=== PATIENT | female | born 1930 | race Caucasian/White ===

== ENCOUNTER 2016-12-15 17:15 | Outpatient (CLI) | payer MEDICARE, OTHER | END 2016-12-15 17:16 | disposition critical access hospital (66) | LOC: EMS 17:15 | PROVIDERS: ATTEND Surgery | DX: R55 Syncope and collapse (principal) | CPT/HCPCS: A0425; A0429 ==

== ENCOUNTER 2016-12-15 17:38 | Observation (INO) | payer MEDICARE, OTHER ==
--- NOTE | 2016-12-15 20:18 | ED Physician Documentation ---
PD HPI SYNCOPE - Stated complaint Stated Complaint: NEAR SYNCOPE - Chief complaint Chief Complaint: General - History obtained from History obtained from: Patient, EMS - History of Present Illness Witnessed: Witnessed Timing - onset: Today Duration: Seconds Preceding symptoms: Light headed, Generalized weakness. No: Headache, Vision changes, Chest pain, Palpitations, Diaphoresis, Dyspnea, Abdominal pain, Nausea / vomiting Associated symptoms: No: Seizure, Incontinant of urine, Incontinant of stool, Headache, Vision changes, Chest pain, Palpitations, Diaphoresis, Dyspnea, Nausea / vomiting Contributing factors: No: Recent med change Injury occurred: Fell. No: Head injury, Neck injury Pain level max: 0 Pain level now: 0 Similar symptoms before: Has not had sx before Recently seen: Not recently seen Review of Systems Ten Systems: 10 systems reviewed and negative Constitutional: denies: Fever, Chills Nose: denies: Rhinorrhea / runny nose, Congestion Throat: denies: Sore throat Cardiac: reports: Palpitations (states "didn't notice"). denies: Chest pain / pressure Respiratory: denies: Cough GI: denies: Abdominal Pain, Nausea, Vomiting Skin: denies: Rash Musculoskeletal: denies: Neck pain, Back pain Neurologic: denies: Headache PD PAST MEDICAL HISTORY - Past Medical History Past Medical History: Yes Other Past Medical History: uterine cancer - Past Surgical History Past Surgical History: Yes /[employer]: Hysterectomy - Present Medications Home Medications: Ambulatory Orders Medication Instructions Recorded Confirmed No Known Home Medications [No 12/15/16 12/15/16 Known Home Medications] - Allergies Allergies/Adverse Reactions: Allergies Allergy/AdvReac Type Severity Reaction Status Date / Time Sulfa (Sulfonamide Allergy Unknown Verified 12/15/16 17:47 Antibiotics) - Social History Does the pt smoke?: No Smoking Status: Never smoker PD ED PE NORMAL - Vitals Vital signs reviewed: Yes - General General: Alert and oriented X 3, No acute distress, Well developed/nourished - HEENT HEENT: Atraumatic, PERRL, Moist mucous membranes - Neck Neck: Supple, no meningeal sign, No bony TTP - Cardiac Cardiac: RRR, No murmur, Strong equal pulses - Respiratory Respiratory: No respiratory distress, Clear bilaterally - Abdomen Abdomen: Soft, Non tender, Non distended - Back Back: No spinal TTP - Derm Derm: Warm and dry, No rash - Extremities Extremities: No edema, No calf tenderness / cord - Neuro Neuro: Alert and oriented X 3, mine technician 2-12 intact, No motor deficit, No sensory deficit, Normal speech - Psych Psych: Normal mood, Normal affect Results - Vitals Vitals: Vital Signs - 24 hr 12/15/16 12/15/16 17:42 21:10 Temperature 36.4 C L 36.6 C Heart Rate 82 88 Respiratory 18 18 Rate Blood Pressure 142/82 H 198/88 H O2 Saturation 99 98 Oxygen O2 Source Room air - EKG (time done) 2030 Rate: Rate (enter#) (76) Rhythm: NSR, Other (PVC) [place]: Normal Intervals: Normal TN, Prolonged QT (521) QRS: Normal - Labs Labs: Laboratory Tests 12/15/16 12/15/16 12/15/16 19:25 20:20 20:20 WBC 10.8 RBC 3.43 L Hgb 10.4 L Hct 30.6 L MCV 89.2 MCH 30.5 MCHC 34.2 RDW 14.2 Plt Count 288 MPV 6.7 L Neut # 8.7 H Lymph # 1.4 L [place] # 0.6 Eos # 0.0 Baso # 0.1 Absolute Nucleated RBC 0.00 Nucleated RBCs 0.0 ESR VBG pH Ionized Calcium Sodium 136 Potassium 3.5 Chloride 103 Carbon Dioxide 25 Anion Gap 8.0 BUN 27 H Creatinine 1.2 H Estimated GFR (MDRD) 43 L Glucose 116 H Calcium 6.2 L* Phosphorus 4.2 Magnesium 2.0 Total Bilirubin 0.7 AST 32 ALT 18 Alkaline Phosphatase 84 Troponin I Total Protein 6.1 L Albumin 1.9 L Globulin 4.2 Albumin/Globulin Ratio 0.5 L Lipase 44 PTH Intact Urine Color YELLOW Urine Clarity HAZY Urine pH 6.0 Ur Specific [place] 1.025 Urine Protein >=300 H Urine Glucose (UA) NEGATIVE Urine Ketones NEGATIVE Urine Occult Blood MODERATE H Urine Nitrite NEGATIVE Urine Bilirubin NEGATIVE Urine Urobilinogen 0.2 (NORMAL) Ur Leukocyte Esterase NEGATIVE Urine RBC 6-10 H Urine WBC 0-3 Ur Squamous Epith Cells FEW Squamous Urine Bacteria Few Urine Casts 0-2 Hyaline Casts Ur Microscopic Review INDICATED Urine Culture Comments NOT INDICATED 12/15/16 12/15/16 12/15/16 20:20 20:20 20:20 WBC RBC Hgb Hct MCV MCH MCHC RDW Plt Count MPV Neut # Lymph # [place] # Eos # Baso # Absolute Nucleated RBC Nucleated RBCs ESR > 140 H VBG pH Ionized Calcium Sodium Potassium Chloride Carbon Dioxide Anion Gap BUN Creatinine Estimated GFR (MDRD) Glucose Calcium Phosphorus Magnesium Total Bilirubin AST ALT Alkaline Phosphatase Troponin I 0.04 Total Protein Albumin Globulin Albumin/Globulin Ratio Lipase PTH Intact 49 Urine Color Urine Clarity Urine pH Ur Specific [place] Urine Protein Urine Glucose (UA) Urine Ketones Urine Occult Blood Urine Nitrite Urine Bilirubin Urine Urobilinogen Ur Leukocyte Esterase Urine RBC Urine WBC Ur Squamous Epith Cells Urine Bacteria Urine Casts Ur Microscopic Review Urine Culture Comments 12/15/16 21:30 WBC RBC Hgb Hct MCV MCH MCHC RDW Plt Count MPV Neut # Lymph # [place] # Eos # Baso # Absolute Nucleated RBC Nucleated RBCs ESR VBG pH 7.342 Ionized Calcium 0.82 L Sodium Potassium Chloride Carbon Dioxide Anion Gap BUN Creatinine Estimated GFR (MDRD) Glucose Calcium Phosphorus Magnesium Total Bilirubin AST ALT Alkaline Phosphatase Troponin I Total Protein Albumin Globulin Albumin/Globulin Ratio Lipase PTH Intact Urine Color Urine Clarity Urine pH Ur Specific [place] Urine Protein Urine Glucose (UA) Urine Ketones Urine Occult Blood Urine Nitrite Urine Bilirubin Urine Urobilinogen Ur Leukocyte Esterase Urine RBC Urine WBC Ur Squamous Epith Cells Urine Bacteria Urine Casts Ur Microscopic Review Urine Culture Comments PD MEDICAL DECISION MAKING - ED course Complexity details: reviewed results, re-evaluated patient, considered differential, d/w patient, d/w freight traffic consultant ED course: Patient is an 86-year-old female who presents to the emergency department with syncope today. She is found to have a prolonged QT interval on her EKG and to be severely hypocalcemic. IV calcium was given in the emergency department and parathyroid hormone level sent. We will admit the patient for correction of her calcium, telemetry monitoring and further evaluation. Discussed the case with the hospitalist who accepts. This document was made in part using voice recognition software. While efforts are made to proofread this document, sound alike and grammatical errors may occur. Departure - Departure Disposition: ED Place in Observation Clinical Impression: Hypocalcemia, QT prolongation Syncope Qualifiers: Syncope type: unspecified Qualified Code(s): R55 - Syncope and collapse Hypertension Qualifiers: Hypertension type: unspecified Qualified Code(s): I10 - Essential (primary) hypertension Condition: Stable Discharge Date/Time: 12/15/16 22:48
[2016-12-15 20:31] LABS: BASOPHILS # (AUTO) 0.1 10^3/uL (0.0-0.1); BASOPHILS % (AUTO) 0.8 %; EOSINOPHILS % (AUTO) 0.4 %; HCT - HEMATOCRIT 30.6 % (37.0-47.0); HGB - HEMOGLOBIN 10.4 g/dL (12.0-16.0); LYMPHOCYTES # (AUTO) 1.4 10^3/uL (1.5-3.5); LYMPHOCYTES % (AUTO) 13.2 %; MEAN CORPUSCULAR HEMOGLOBIN 30.5 pg (27.0-31.0); MEAN CORPUSCULAR HGB CONC 34.2 g/dL (32.0-36.0); MEAN CORPUSCULAR VOLUME 89.2 fL (81.0-99.0); MEAN PLATELET VOLUME 6.7 fL (7.9-10.8); MONOCYTES # (AUTO) 0.6 10^3/uL (0.0-1.0); MONOCYTES % (AUTO) 5.4 %; NEUTROPHILS # (AUTO) 8.7 10^3/uL (1.5-6.6); NEUTROPHILS % (AUTO) 80.2 %; RED BLOOD COUNT 3.43 10^6/uL (4.20-5.40); RED CELL DISTRIBUTION WIDTH 14.2 % (12.0-15.0); UNCORRECTED WHITE BLOOD COUNT 10.8 x10^3/uL; WHITE BLOOD COUNT 10.8 x10^3/uL (4.8-10.8)
[2016-12-15 20:34] LABS: BILIRUBIN,URINE NEGATIVE (NEGATIVE)
[2016-12-15 20:38] LABS: UA w/ MICROSCOPIC CHARGE YES
[2016-12-15 20:54] LABS: ALBUMIN/GLOBULIN RATIO 0.5 (1.0-2.2); BILIRUBIN,TOTAL 0.7 mg/dL (0.2-1.0); CREATININE 1.2 mg/dL (0.4-1.0); PHOSPHORUS 4.2 mg/dL (2.5-4.6); POTASSIUM 3.5 mmol/L (3.5-5.0); TOTAL PROTEIN 6.1 g/dL (6.7-8.2)
[2016-12-15 20:59] LABS: WBC,URINE 0-3 /HPF (0-5)
[2016-12-15 21:00] LABS: UR CULTURE IF IND NOT INDICATED
[2016-12-15 21:05] LABS: CALCIUM 6.2 mg/dL (8.5-10.3)
[2016-12-15] MEDS ORDERED: CALCIUM GLUCONATE 1000 MG/10 ML VIAL IVP STA (21:09)
[2016-12-15] MEDS ORDERED: SODIUM CHLORIDE 0.9% 1,000 ML IV ONE (21:12)
[2016-12-15] MEDS ORDERED: CALCIUM GLUCONATE 1000 MG/10 ML VIAL ONE (21:18)
[2016-12-15 21:47] LABS: CALCIUM, IONIZED 0.82 mmol/L (1.15-1.33); VBG PH 7.342 (7.31-7.41)
[2016-12-15] MEDS ORDERED: ONDANSETRON 4 MG/2 ML VIAL IVP PRN (22:22)
[2016-12-15] MEDS ORDERED: SODIUM CHLORIDE FLUSH 0.9% 10 ML SYRINGE IVP PRN (22:22)
[2016-12-15] MEDS ORDERED: ACETAMINOPHEN 325 MG TABLET PO PRN (22:22)
[2016-12-15] MEDS ORDERED: ZOLPIDEM 5 MG TABLET PO PRN (22:22)
[2016-12-15 23:26] LABS: THYROID STIMULATING HORMONE 4.59 uIU/mL (0.34-5.60)
[2016-12-16] MEDS: CALCIUM CARBONATE CHEW 500 MG TABLET PO SCH ×2 (00:12→07:39)
[2016-12-16] MEDS ORDERED: SODIUM CHLORIDE FLUSH 0.9% 10 ML SYRINGE IVP SCH (06:00)
[2016-12-16 06:40] LABS: BUN - BLOOD UREA NITROGEN 28 mg/dL (6-20); CARBON DIOXIDE - CO2 25 mmol/L (21-32); CHLORIDE 105 mmol/L (101-111); CREATININE 1.4 mg/dL (0.4-1.0); GFR - MDRD 36 (>89); GLUCOSE 97 mg/dL (70-100); PHOSPHORUS 4.7 mg/dL (2.5-4.6); POTASSIUM 3.9 mmol/L (3.5-5.0); SODIUM 138 mmol/L (135-145)
[2016-12-16] MEDS ORDERED: CALCIUM GLUCONATE 1,000 MG in SODIUM CHLORIDE 0.9% 50 ML IV ONE ×5 (06:43→08:00)
[2016-12-16 06:45] LABS: CALCIUM 6.4 mg/dL (8.5-10.3)
[2016-12-16 06:48] LABS: CALCIUM, IONIZED 0.9 mmol/L (1.15-1.33); VBG PH 7.395 (7.31-7.41)
--- NOTE | 2016-12-16 07:11 | HISTORY & PHYSICAL EXAMINATION ---
DATE OF ADMISSION: 12/15/2016 CHIEF COMPLAINT: Syncope. HISTORY OF PRESENT ILLNESS: The patient is an 86-year-old white female with remote history of uterine cancer, who has no active medical issues, at least not to her knowledge, and she takes no outpatient medications. She was brought into the [facility] ER by ambulance after she suffered a presyncopal or syncopal episode at a local store. The patient reported that around 3:00 p.m., she was at a store pushing a cart and felt exhausted. She thinks that as she is getting older, she feels weaker and often gets tired. As she got exhausted, she steered the cart into a display station and subsequently got some help from bystanders. By the time bystanders were next to her, she was lowered to the floor, and she believes she passed out, lost some time, and collapsed. She tells me that she is not sure whether she just fainted and did not really pass out or passed out, but the way she tells me the story, it seems that she did lose time, and it most likely was a true syncopal episode. Other than this episode on her admission day, she had 1 similar episode 6 months ago. The patient denied chest pain and shortness of breath. She denied fever, nausea, vomiting, or any additional acute change. She, however, admitted to weight loss of at least 25 pounds during the past 6 months, which was unintentional. She told me that she eats mostly salads and fish. She does not eat meat. Does not drink milk, but eats cheese and yogurt. She also eats eggs. She does have enough resources and has access to food. She likes to cook and usually eats high quality meals. She did not try to lose weight, and she does not feel like her appetite was much worse than usual. Regarding additional problems in the past few months, she noticed that her ankles started to swell up, the right ankle more than the left. Regarding her cancer history, she had uterine cancer about 12 years ago. At that time, she underwent hysterectomy, received chemotherapy and radiation therapy, and followed up with an oncologist often. However, 5 years after her cancer, she stopped following up with the oncologist and only has primary care followup. She does go to have Pap smears yearly. PAST MEDICAL HISTORY: Uterine cancer, status post chemotherapy and radiation therapy, status post hysterectomy. MEDICATIONS: The patient takes no medications. SOCIAL HISTORY: The patient still drives. Functional with instrumental activities of daily living. She is a nonsmoker. She uses a cane to ambulate. FAMILY HISTORY: Mother of a myocardial infarction at age 70. Father of lung cancer at age 67. REVIEW OF SYSTEMS: Please see pertinent positives listed in the history of present illness. The patient does not report additional complaints on a 12- point review. CODE STATUS: DO NOT RESUSCITATE/DO NOT INTUBATE. IN FACT, THE PATIENT TELLS ME THAT IF HER CANCER WOULD RETURN, SHE WOULD NOT WANT TREATMENT. SHE WOULD WANT TO BE TREATED ACCORDING TO COMFORT. PHYSICAL EXAMINATION: VITAL SIGNS: Temperature 36.6, heart rate in the 80s, blood pressure 140/80, respiratory rate 18, oxygen saturation 99% on room air. Notably, on the medical floor, the patient's blood pressure increased to 170-180 systolic. GENERAL: The patient is a well-developed, elderly female who was not in distress. SKIN: Pallor. No jaundice. LYMPH: The patient had diffuse lymphedema, most noticeable on the lower extremities, with 2+ edema up to the mid delatorre bilaterally. NEUROLOGIC: Alert, oriented, nonfocal. PSYCH: Cooperative. MUSCULOSKELETAL: Atraumatic. CVS: S1, S2. Irregular. I could not hear an obvious murmur. RESPIRATORY: Lungs clear to auscultation, without wheezes or crackles. ABDOMEN: Soft, benign, nontender. Bowel tones present. LABORATORY DATA: ER workup reviewed per electronic medical record. The pertinent positives included an EKG showing bigeminy, prolonged QT, and nonspecific changes. Laboratories showing a calcium of 6.2 and an albumin of 1.9. The corrected calcium would be 7.9. Ionized calcium was low as well. Creatinine was 1.2 and BUN 27. Urinalysis showed red blood cells and protein. Hemoglobin was 10.4. Troponin was negative. ACTIVE ISSUES/DIAGNOSES: 1. Syncopal episode, likely multifactorial. The patient appears with significant weight loss and a poor nutritional status. She also has advanced age. a. I wonder whether the uterine cancer or any other malignancy is complicating the case. b. Patient with abnormal EKG. Could have suffered a cardiac syncope. c. Orthostatic change and mild dehydration are possible. BUN was 27. The electrolyte abnormality, including hypocalcemia, and weakness could also have contributed. d. Intracranial abnormality and stroke unlikely, as the patient had a nonfocal neurologic exam. 2. Hypocalcemia. Corrected calcium is 7.9. The patient likely has vitamin D deficiency that could be related to her diet. Plus, she could have abnormal parathyroid function and will require further workup. Regarding the phosphate and magnesium, those were checked in the ER and were unremarkable/normal. The patient will need to have calcium replacement. 3. Abnormal EKG and bigeminy, prolonged QT. This is in the setting of electrolyte abnormality. 4. Lower extremity edema. In the setting of severe hypoalbuminemia, hypoalbuminemia could obviously cause peripheral edema, plus the patient might also have heart failure. 5. Episodes of hypertension after admission. The patient might have undiagnosed hypertension. 6. Severe malnutrition with 25-pound weight loss and an albumin of 1.9. I suspect recurrent malignancy. PLAN AND ORDERS: 1. The patient is getting admitted under observation. We will complete a syncope workup, which will include telemetry monitoring, echocardiogram, checking orthostatic vital signs, and carotid ultrasound. I considered a CT scan of the brain, but the patient appeared neurologically nonfocal. She did not suffer a head injury. 2. Calcium replacement. 3. IV hydration was given in the ER. 4. Regarding malnutrition, we will request a medical laboratory specialist consult. 5. I discussed with the patient that her uterine cancer needs to be followed up. Due to her weight loss, she would be recommended to undergo further workup and an oncology checkup. The patient told me that she does not wish further workup, as that would be of no consequence. She would not accept any therapy or intervention for her cancer. Therefore, for now, I ordered an ESR to get more information, but I did not order any extensive workup such as an abdominal ultrasound or tumor markers. Further workup could be deferred to the outpatient setting, and that is what I discussed with the patient. She understands that she would need to follow up for this problem. 6. Regarding the etiology of her hypocalcemia, we will check a 1, 25-vitamin D level. In the meantime, we will give IV calcium replacement and oral calcium supplements as well, and I started vitamin D. 7. Regarding her hypertension, we will consider starting an antihypertensive. 8. Regarding the lower extremity swelling, as it was asymmetric, I will order an ultrasound of the legs to rule out DVT. Notably, the patient likely has cancer, and that would increase her thromboembolic risk. We will not use mechanical prophylaxis given the possibility of a DVT, plus given the swollen legs. We will use pharmacologic prophylaxis. 9. Social work consult for discharge planning, and physical therapy and occupational therapy evaluation. The patient might need home health or some resources at discharge planning. 10. Repeat laboratories in the morning. Time spent in the care of this patient was 60 minutes. JOB #: [id number] EXT JOB #:[id number] BRENDAN
--- NOTE | 2016-12-16 07:25 | DISCHARGE SUMMARY ---
Discharge Summary Admit Date: 12/15/16 Discharging Provider: Sejal Peck APRN Code Status: Do Not Attempt Resuscitation Condition at Discharge: Stable Discharge Disposition: 01 Home, Self Care Discharge Facility Name: home - DIAGNOSES Admission Diagnoses: 1. Syncope and Collapse 2. Acute Hypocalcemia 3. Acute hypoalbuminemia 4. history of uterine cancer Discharge Diagnoses with Status of Each Condition: 1. Acute weakness Syncope and Collapse 2. Acute Hypocalcemia 3. Acute hypoalbuminemia 4. history of uterine cancer - HPI History of Present Illness: Patient is an 86-year-old female who presents to the emergency department with syncope today. She is found to have a prolonged QT interval on her EKG and to be severely hypocalcemic. IV calcium was given in the emergency department and parathyroid hormone level sent. We will admit the patient for correction of her calcium, telemetry monitoring and further evaluation. r. - CONSULTS | PROCEDURES Consultations: physical therapy Procedures: patient refused having an echocardiogram. She did not want a carotid doppler study. She states "what am I going to do with the results because I am not going to change anything I am doing now" - HOSPITAL COURSE Hospital Course: Patient is a 86 year old female who was admitted to the ER for a syncopal event yesterday while at the grocery store. Patient was admitted and given IVF and calcium for hypocalcemia. She received IVF NS for gentle hydration for mild dehydration and syncope. Blood work completed with daily labs and showed low albumin, low calcium and thyroid panel completed that was unremarkable. Patient was scheduled for an echocardiogram, CT of head and carotid doppler but refused all procedures. She has a history of uterine cancer and felt that if she had the testing, it would not change her decisions to not have any abnormal results addressed. She did agree to work with physical therapy and was found to be unstable on her feet. She does use a walker at home. she lives by herself with neighbors who come to help her. She was prescribed a wheeled walker to help with gait stability. She did get beta blockers and Aneesh inhibitor while in observation per protocol. She has a pacemaker. She was on a regular diet and on DVT prophylaxis. She will be discharged home with friends to assure safety at home today. Patient Vital signs were stable and she verbally understood discharge instructions. She agreed to followup with her primary care Kd Khan APRN. - ALLERGIES Allergies/Adverse Reactions: Allergies Allergy/AdvReac Type Severity Reaction Status Date / Time melon Allergy Unknown Verified 12/16/16 01:09 Sulfa (Sulfonamide Allergy Unknown Verified 12/15/16 17:47 Antibiotics) - MEDICATIONS Home Medications: Ambulatory Orders Medication Instructions Recorded Confirmed Calcium Carbonate [Tums (Calcium 500 mg PO BID #30 tablet 12/16/16 Carbonate 500mg)] Cholecalciferol [Vitamin D3] 5,000 unit PO BID #60 capsule 12/16/16 - PHYSICAL EXAM AT DISCHARGE General Appearance: positive: No acute distress, Alert Eyes Bilateral: positive: Normal inspection, PERRL ENT: positive: ENT inspection nml, Pharynx nml, No signs of dehydration Neck: positive: Nml inspection, Thyroid nml, No JVD, Trachea midline Respiratory: positive: Chest non-tender, No respiratory distress, Breath sounds nml Cardiovascular: positive: Regular rate & rhythm, No murmur, No gallop Peripheral Pulses: positive: 2+ Abdomen: positive: Non-tender, No organomegaly, Nml bowel sounds, No distention Back: positive: Nml inspection. negative: CVA tenderness (R), CVA tenderness (L ) Skin: positive: Color nml, No rash, Warm, Dry Extremities: positive: Non-tender, Full ROM, Nml appearance Neurologic/Psychiatric: positive: Oriented x3, CN's nml (2-12), Motor nml, Sensation nml, Mood/affect nml, Weakness - LABS Result Diagrams: 12/15/16 20:20 12/16/16 06:04 Other Lab Results: Abnormal Lab Results 12/15/16 12/15/16 12/15/16 19:25 20:20 20:20 RBC 3.43 10^6/uL L 10^6/uL (4.20-5.40) Hgb 10.4 g/dL L g/dL (12.0-16.0) Hct 30.6 % L % (37.0-47.0) MPV 6.7 fL L fL (7.9-10.8) Neut # 8.7 10^3/uL H 10^3/uL (1.5-6.6) Lymph # 1.4 10^3/uL L 10^3/uL (1.5-3.5) ESR Ionized Calcium BUN 27 mg/dL H mg/dL (6-20) Creatinine 1.2 mg/dL H mg/dL (0.4-1.0) Estimated GFR (MDRD) 43 L (>89) Glucose 116 mg/dL H mg/dL (70-100) Calcium 6.2 mg/dL L* mg/dL (8.5-10.3) Phosphorus Total Protein 6.1 g/dL L g/dL (6.7-8.2) Albumin 1.9 g/dL L g/dL (3.2-5.5) Albumin/Globulin Ratio 0.5 L (1.0-2.2) Urine Protein >=300 mg/dL H mg/dL (NEGATIVE) Urine Occult Blood MODERATE H (NEGATIVE) Urine RBC 6-10 /HPF H /HPF (0-5) 12/15/16 12/15/16 12/16/16 20:20 21:30 06:04 RBC Hgb Hct MPV Neut # Lymph # ESR > 140 mm/Hr H mm/Hr (0-30) Ionized Calcium 0.82 mmol/L L mmol/L (1.15-1.33) BUN 28 mg/dL H mg/dL (6-20) Creatinine 1.4 mg/dL H mg/dL (0.4-1.0) Estimated GFR (MDRD) 36 L (>89) Glucose Calcium 6.4 mg/dL L* mg/dL (8.5-10.3) Phosphorus 4.7 mg/dL H mg/dL (2.5-4.6) Total Protein Albumin 1.7 g/dL L g/dL (3.2-5.5) Albumin/Globulin Ratio Urine Protein Urine Occult Blood Urine RBC 12/16/16 06:04 RBC Hgb Hct MPV Neut # Lymph # ESR Ionized Calcium 0.90 mmol/L L mmol/L (1.15-1.33) BUN Creatinine Estimated GFR (MDRD) Glucose Calcium Phosphorus Total Protein Albumin Albumin/Globulin Ratio Urine Protein Urine Occult Blood Urine RBC - DIAGNOSTIC IMAGING Diagnostic Imaging Results Comments: not completed since patient essentially refused further testing - FOLLOW UP Follow Up: Patiemt was instructed to followup with primary care provider Eufemia Khan APRN within the nect 1-2 days for further evaluation and planning. Patient agreed to see primary care and verbally understood all instructions given . - TIME SPENT Time Spent in Discharge (Minutes): 40 (assessment and planning at discharge)
[2016-12-16] MEDS ORDERED: METOPROLOL SUCCINATE 25 MG TABLET PO SCH (09:00)
[2016-12-16] MEDS ORDERED: LISINOPRIL 5 MG TABLET PO SCH (09:00)
[2016-12-16] MEDS ORDERED: POLYETHYLENE GLYCOL 3350 17 GM PACKET PO SCH (09:00)
[2016-12-16] MEDS ORDERED: CHOLECALCIFEROL 1,000 UNIT TABLET PO SCH (09:00)
--- NOTE | 2016-12-16 11:58 | Discharge Plan ---
Discharge Plan Disposition: Home, Self Care Condition: Stable Prescriptions: Calcium Carbonate [Tums (Calcium Carbonate 500mg)] 500 mg PO BID #30 tablet Cholecalciferol [Vitamin D3] 5,000 unit PO BID #60 capsule Diet: Regular Activity Restrictions: Wt Bearing as Tolerated Shower Restrictions: No Driving Restrictions: No Assistance Devices: Walker, Cane Weight Bearing: Full Weight Instruction Topics: Hypocalcemia Dc Additional Instructions or Follow Up instructions: Please followup with your primary care provider within 1 week of discharge. You have been given prescriptions for Vitamin D and calcium. take as prescribed. Continue to eat a heart healthy diet. Drink plenty of water during the day and avoid soda. Get exercise daily and use your walker when ambulating. Get up slowly and allow your body to adjust so you do not get dizzy Please return to the ER if your symptoms reoccur or you have chest pain or shortness of breath. Call [phone] No Smoking: If you smoke, Please STOP! Call for help. Follow-up with: Nedra Lei ARNP [Physician No Access] -
[2016-12-16 14:55] VITALS: BP 166/86
[2016-12-16] MEDS ORDERED: HEPARIN 5,000 UNIT/ML VIAL SUBQ SCH (21:00)
== END 2016-12-16 14:56 | disposition home or self-care (01) ==
LOC: EDUNIT# → ED 17:38 → OBS 22:23
PROVIDERS: ADMIT Internal Medicine; ATTEND Internal Medicine
DX: R55 Syncope and collapse (principal); E83.51 Hypocalcemia; E88.09 Other disorders of plasma-protein metabolism, not elsewhere classified; E86.0 Dehydration; I10 Essential (primary) hypertension; E43 Unspecified severe protein-calorie malnutrition; I89.0 Lymphedema, not elsewhere classified; R26.81 Unsteadiness on feet; Z68.20 Body mass index [BMI] 20.0-20.9, adult; Z85.42 Personal history of malignant neoplasm of other parts of uterus; Z90.710 Acquired absence of both cervix and uterus; Z66 Do not resuscitate; Z95.0 Presence of cardiac pacemaker; Z92.21 Personal history of antineoplastic chemotherapy; Z92.3 Personal history of irradiation
CPT/HCPCS: 36415; 80053; 80069; 81001; 82330; 82652; 83690; 83735; 83970; 84100; 84439; 84443; 84484; 85025; 85651; 93005; 96361; 96365; 96375; 97161; 99284; 99285; A9270; G0378; J7040; 81003; 87086; 96374

== ENCOUNTER 2017-03-07 11:33 | Outpatient (CLI) | payer MEDICARE, OTHER | END 2017-03-07 11:34 | disposition critical access hospital (66) | LOC: EMS 11:33 | PROVIDERS: ATTEND Surgery | DX: R53.1 Weakness (principal) | CPT/HCPCS: A0425; A0427 ==